=== PATIENT | female | born 2000 | race Caucasian/White ===

== ENCOUNTER 2022-05-21 04:51 | Emergency (ER) | payer OTHER, SELFPAY ==
--- NOTE | ~2022-05-21 | XR_ITS ---
EXAMINATION: XR CHEST CLINICAL INFORMATION: Shortness of breath COMPARISON: None TECHNIQUE: Frontal view of the chest was obtained. FINDINGS: Normal symmetric lung volumes. No parenchymal consolidation. No pleural effusion. No pneumothorax. Cardiomediastinal silhouette and pulmonary vascularity are within normal limits. No acute osseous abnormalities. XR/XR chest 1V IMPRESSION: No acute pulmonary findings
[2022-05-21 05:04] VITALS: BP 109/69; PULSE 120; RESP 18; TEMP 37.9; O2SAT 97; BMI 20.9
--- NOTE | 2022-05-21 05:11 | ECG_ITS ---
Test Reason : tachycardia Blood Pressure : / mmHG Vent. Rate : 113 BPM Atrial Rate : 113 BPM P-R Int : 158 ms QRS Dur : 072 ms QT Int : 310 ms P-R-T Axes : 071 075 016 degrees QTc Int : 425 ms Sinus tachycardia Otherwise normal ECG No previous ECGs available Referred By: Og Lilly Electronically Signed By:RADHA LAMAR
[2022-05-21 05:36] LABS: Basophils Percent Auto 0.4 % (0-2); Eosinophils Absolute Auto 0.2 X10*3/uL (0.0-0.4); Eosinophils Percent Auto 2.2 % (0-4); Hematocrit 42.3 % (37.0-47.0); Hemoglobin 14.5 g/dl (12.0-16.0); Imm Gran Abs Auto 0.02 X10*3/uL (0.00-0.03); Imm Gran Pct Auto 0.2 % (0.0-0.4); Lymphocytes Absolute Auto 0.5 X10*3/uL (1.2-4.9); Lymphocytes Percent Auto 5.9 % (20-40); MANUAL DIFF FLAG NO; Mean Corpuscular HGB Conc 34.3 g/dl (31.0-35.0); Mean Corpuscular Hemoglobin 29.7 pg (27.0-33.0); Mean Corpuscular Volume 86.7 fL (80.0-98.0); Mean Platelet Volume 10.3 fL (9.4-12.3); Monocytes Absolute Auto 0.6 X10*3/uL (0.1-1.2); Monocytes Percent Auto 6.7 % (2-11); Neutrophils Absolute Auto 7.1 x10*3/uL (2.0-8.3); Neutrophils Percent Auto 84.6 % (45-73); Platelet Count 262 X10*3/uL (160-400); Red Blood Count 4.88 X10*6/uL (4.20-5.50); White Blood Count 8.5 X10*3/uL (4.8-10.8)
[2022-05-21] MEDS: 0.9 % Sodium Chloride 1,000 ML 999 ML IV (05:38)
[2022-05-21] MEDS: Albuterol Sulfate (0.083%) 2.5 MG/3 ML VIAL.NEB INHALE (05:46)
[2022-05-21] MEDS: Albuterol/Iprat 2.5/0.5MG 3 ML AMPUL.NEB INHALE (05:46)
[2022-05-21] MEDS: predniSONE 20 MG TABLET 40 MG PO (05:47)
[2022-05-21 05:52] LABS: Anion Gap 19 (12-20); Blood Urea Nitrogen 9 mg/dL (9-16); Calcium 9.6 mg/dL (8.4-10.2); Carbon Dioxide 22 mmol/L (22-29); Chloride 102 mmol/L (96-108); Creatinine Clr Calc Pharmacy 97.7; Estimated Glomerular Filt Rate > 60; Glucose Random 108 mg/dL (60-115); Lipase 23 U/L (8-78); Potassium 3.6 mmol/L (3.3-5.1); Sodium 139 mmol/L (135-145)
[2022-05-21 06:04] VITALS: BP 117/65; PULSE 124; RESP 13; TEMP 37.8; O2SAT 100
--- NOTE | 2022-05-21 06:10 | PC.NURSE ---
Patient reports feeling heart palpitations. RR 15, O2 Sat 100%, BP 117/65, P 120-129. Patient denies chest pain, dyspnea improving. Patient receiving Duoneb treatment at this moment. Dr. Lilly notified.
[2022-05-21 06:17] LABS: Influenza A PCR NEGATIVE (Negative); Influenza B PCR NEGATIVE (Negative); Resp Syncy Virus RNA Qual PCR NEGATIVE (Negative); SARS COV2 PCR INHOUSE NEGATIVE (Negative)
--- NOTE | 2022-05-21 06:25 | ED.GENADULT ---
HPI - General Adult General Chief complaint: General Medical Stated complaint: SOB/Fast heart rate Time Seen by Provider: 05/21/22 05:10 Source: patient Mode of arrival: ambulatory Limitations: no limitations History of Present Illness HPI narrative: 21-year-old female came in for evaluation of shortness of breath and feeling generalized weakness. 21-year-old female with history of asthma since yesterday been having shortness of breath and coughing with clear sputum, patient also been having rapid heart rate and shortness of breath. Patient declined any recent prolonged immobilization, no recent travel, no lower extremity swelling or tenderness, no history of DVT or PE. No sick contacts, no recent travel. Related Data Previous Rx's Medication Instructions Recorded albuterol sulfate 90 mcg/actuation 1 inh inhalation QID PRN shortness 05/21/22 aerosol inhaler of breath or wheezing #8.5 grams azithromycin 250 mg tablet See Rx Instructions PO .COMPLEX #6 05/21/22 (Zithromax Z-Ravin) tabs prednisone 20 mg tablet 20 mg PO BID #8 tabs 05/21/22 Allergies Allergy/AdvReac Type Severity Reaction Status Date / Time No Known Allergies Allergy Verified 05/21/22 05:03 Review of Systems Review of Systems: All other systems are reviewed and are negative Constitutional: Reports as per HPI and Reports no additional constitutional complaints Eyes: Reports as per HPI and Reports no additional eye complaints Reports system reviewed and no additional complaints, except as documented Cardiovascular: Reports as per HPI and Reports no additional cardiovascular complaints Respiratory: Reports as per HPI and Reports no additional respiratory complaints Gastrointestinal: Reports as per HPI and Reports no additional gastrointestinal complaints Genitourinary: Reports no additional female genitourinary complaints Musculoskeletal: Reports no additional musculoskeletal complaints Skin/Breast: Reports system reviewed and no additional complaints, except as docu Psychiatric: Reports no additional psychiatric complaints Endocrine: Reports no additional endocrine complaints Hematologic/Lymphatic: Reports no additional hematologic/lymphatic complaints Allergic/Immunologic: Reports no additional allergic/immunologic complaints Reports system reviewed and no additional complaints, except as documented and Reports Abnormal speech present [facility] Social History Social History Advance Directives: No Physical Exam ED Vital Signs: Vital Signs - 24 hr 05/21/22 05:04 05/21/22 06:04 Temperature 100.3 F 100.1 F Pulse Rate 120 H 124 H Respiratory Rate 18 13 Blood Pressure 109/69 117/65 Pulse Oximetry 97 100 Oxygen Delivery Method Room Air Room Air BMI result Body Mass Index 20.9 Vital signs have been reviewed as appeared to be correct. Blood pressure normal. Tachycardia. Respiration rate normal. Low-grade fever. Oxygen saturation normal. Appearance: Alert. Oriented X3. No acute distress. Head: Normal external exam. Normocephalic. Atraumatic. No Bucio signs noted. No raccoon eyes noted Eyes: PERRLA. EOMI. Conjunctiva and sclera normal. Eyelids normal. ENT: TM's Normal. Pharynx normal. Uvula midline. Moist mucous membranes. No trismus noted. No drooling noted. No muffled voice noted. Neck: Normal inspection. Neck supple. FROM. No adenopathy. Thyroid Normal. No meningeal signs. No neck mass noted. CVS: Sinus tachycardia. Heart sound normal. No murmurs noted. Pulses normal throughout. Respiratory: No respiratory distress. Painless inspiration. Breath sounds normal. Diffuse expiratory wheezing with prolonged expiration. Chest nontender. No accessory muscle usage noted or decreased air movement noted. Abdomen: Soft and nontender. Bowel sounds normal in all 4 quadrants. No distention noted. No organomegaly noted. No visible injury noted. Back: No CVA tenderness. Full range of motion noted. Skin: Skin warm and dry. Normal skin color. Normal skin turgor. No rashes/lesions/lacerations noted. Extremities: No lower extremity edema. Extremities exhibit normal range of motion. Extremities nontender. Neuro: Oriented X 3. Cranial nerve exam: II-XII are grossly intact No motor deficit. No sensory deficit. Reflexes normal. Course Course Course Narrative: 21-year-old female came in for evaluation of shortness of breath physical exam is consistent with acute bronchitis, no risk for PE or DVT awaiting for D-dimer. Will discharge home on prednisone/bronchodilator/Z-Ravin Medical Decision Making Lab Data Lab results reviewed: Yes I reviewed the patient's lab results. Result diagrams: 05/21/22 05:30 05/21/22 05:30 Labs: Lab Results 05/21/22 05/21/22 05/21/22 Range/Units 05:30 05:30 05:30 WBC 8.5 (4.8-10.8) X10*3/uL RBC 4.88 (4.20-5.50) X10*6/uL Hgb 14.5 (12.0-16.0) g/dl Hct 42.3 (37.0-47.0) % MCV 86.7 (80.0-98.0) fL MCH 29.7 (27.0-33.0) pg MCHC 34.3 (31.0-35.0) g/dl RDW 12.0 (11.0-16.0) % Plt Count 262 (160-400) X10*3/uL MPV 10.3 (9.4-12.3) fL Immature Gran % (Auto) 0.2 (0.0-0.4) % Neut % (Auto) 84.6 H (45-73) % Lymph % (Auto) 5.9 L (20-40) % [place] % (Auto) 6.7 (2-11) % Eos % (Auto) 2.2 (0-4) % Baso % (Auto) 0.4 (0-2) % Lymph # (Auto) 0.5 L (1.2-4.9) X10*3/uL [place] # (Auto) 0.6 (0.1-1.2) X10*3/uL Eos # (Auto) 0.2 (0.0-0.4) X10*3/uL Baso # (Auto) 0.0 (0.0-0.2) X10*3/uL Abs Immat Gran (auto) 0.02 (0.00-0.03) X10*3/uL Absolute Neuts (auto) 7.1 (2.0-8.3) x10*3/uL Absolute Nucleated RBC 0.000 (0.0-0.012) X10*3/uL Nucleated RBC % (auto) 0.0 (0.0-0.2) /100WBC Sodium 139 (135-145) mmol/L Potassium 3.6 (3.3-5.1) mmol/L Chloride 102 (96-108) mmol/L Carbon Dioxide 22 (22-29) mmol/L Anion Gap 19 (12-20) BUN 9 (9-16) mg/dL Creatinine 0.76 (0.5-1.4) mg/dL Estim Creat Clear Calc 97.7 Estimated GFR > 60 Random Glucose 108 (60-115) mg/dL Calcium 9.6 (8.4-10.2) mg/dL Lipase 23 (8-78) U/L Influenza Type A (PCR) NEGATIVE (Negative) Influenza Type B (PCR) NEGATIVE (Negative) RSV RNA Qual (PCR) NEGATIVE (Negative) SARS-CoV-2 RNA (RT-PCR) NEGATIVE (Negative) Imaging Data Chest x-ray: Attestation: I personally reviewed and interpreted this imaging study as follows: Radiologist's impression: No acute pathology. ECG Data Attestation: I personally reviewed and interpreted this ECG as follows: Interpretation: Normal sinus tachycardia at 113 beats per minutes, normal intervals, no ST-T changes. Discharge Plan Discharge Clinical Impression: Acute bronchitis Patient Disposition: Home, Self-Care Instructions: Acute Bronchitis (ED) Prescriptions: New prednisone 20 mg tablet 20 mg PO BID Qty: 8 0RF azithromycin [Zithromax Z-Ravin] 250 mg tablet See Rx Instructions .ROUTE .COMPLEX Qty: 6 0RF Rx Instructions: For 250 mg dose pack: take 500 mg today (day 1), then 250 mg for 4 days (days 2-5) albuterol sulfate 90 mcg/actuation HFA aerosol inhaler 1 inh inhalation QID PRN (Reason: shortness of breath or wheezing) Qty: 8.5 0RF Referrals: Physician,Unknown J [Primary Care Provider] -
[2022-05-21 07:18] VITALS: BP 92/54; PULSE 112; RESP 18; TEMP 38.2; O2SAT 98
[2022-05-21 07:39] LABS: D Dimer High Sensitivity < 150 NG/ML
[2022-05-21] MEDS: Acetaminophen 325 MG TABLET 650 MG PO (07:44)
[2022-05-21 08:05] LABS: Appearance Urine Clear; Color Urine Yellow; Glucose Urine UA Negative (Negative); Leukocyte Esterase Urine Negative (Negative); Nitrite Urine Negative (Negative); PH 6.5 (5.0-9.0); Urine Blood Negative (Negative); Urine Ketones Trace mg/dL (Negative); Urine Protein Negative (Neg-Trace)
== END 2022-05-21 08:38 | disposition home or self-care (01) ==
PROVIDERS: Emergency Provider Emergency Medicine
DX: J20.9 Acute bronchitis, unspecified (principal); R53.1 Weakness; Z20.822 Contact with and (suspected) exposure to COVID-19
CPT/HCPCS: 0241U; 36415; 71045; 80048; 81003; 83690; 85025; 85379; 93005; 96360; 96361; 99284; 99285

== ENCOUNTER 2022-12-07 16:57 | Emergency (ER) | payer OTHER, SELFPAY ==
[2022-12-07 17:21] VITALS: BP 133/73; PULSE 100; RESP 18; TEMP 37.2; O2SAT 99; BMI 18.4
--- NOTE | 2022-12-07 17:22 | ED.GENADULT ---
HPI - General Adult General Chief complaint: Nausea/Vomiting/Diarrhea <Warren Burks - Last Filed: 12/07/22 17:23> Stated complaint: N/V/D <Warren Burks - Last Filed: 12/07/22 17:23> Time Seen by Provider: 12/07/22 21:13 <Warren Burks - Last Filed: 12/07/22 17:23> Source: patient <Kota Cottrell MD - Last Filed: 12/08/22 01:52> Mode of arrival: ambulatory <Kota Cottrell MD - Last Filed: 12/08/22 01:52> Limitations: no limitations <Kota Cottrell MD - Last Filed: 12/08/22 01:52> History of Present Illness HPI narrative: Patient is healthy comes here diarrhea and vomiting started earlier today vomited about 4-6 times and diarrhea by 3 times no abdominal cramping no fever no chills no recent travel or bad food intake <Kota Cottrell MD - Last Filed: 12/08/22 01:52> Related Data Home medications: Previous Rx's Medication Instructions Recorded albuterol sulfate 90 mcg/actuation 1 inh inhalation QID PRN shortness 05/21/22 aerosol inhaler of breath or wheezing #8.5 grams azithromycin 250 mg tablet See Rx Instructions PO .COMPLEX #6 05/21/22 (Zithromax Z-Ravin) tabs prednisone 20 mg tablet 20 mg PO BID #8 tabs 05/21/22 ondansetron 4 mg disintegrating 4 mg PO Q6-8H PRN nausea and 12/07/22 tablet vomiting #7 tabs <Warren Burks - Last Filed: 12/07/22 17:23> Allergies/adverse reactions: Allergies Allergy/AdvReac Type Severity Reaction Status Date / Time No Known Allergies Allergy Verified 05/21/22 05:03 <Warren Burks - Last Filed: 12/07/22 17:23> Review of Systems Review of Systems: Yes all other systems are reviewed and are negative <Kota Cottrell MD - Last Filed: 12/08/22 01:52> PMFSH Social History Social History: Social History Advance Directives: No Advance Directives Information Provided: Yes <Warren Burks - Last Filed: 12/07/22 17:23> Physical Exam ED Vital Signs: Vital Signs - 24 hr 12/07/22 17:21 12/07/22 21:02 Temperature 99.0 F 98.4 F Pulse Rate 100 92 Respiratory Rate 18 15 Blood Pressure 133/73 106/64 Pulse Oximetry 99 100 Oxygen Delivery Method Room Air Room Air BMI result Body Mass Index 18.4 <Warren Burks - Last Filed: 12/07/22 17:23> Vital Signs - 24 hr 12/07/22 17:21 12/07/22 21:02 Temperature 99.0 F 98.4 F Pulse Rate 100 92 Respiratory Rate 18 15 Blood Pressure 133/73 106/64 Pulse Oximetry 99 100 Oxygen Delivery Method Room Air Room Air BMI result Body Mass Index 18.4 <Kota Cottrell MD - Last Filed: 12/08/22 01:52> Appearance: Alert. Oriented X3. No acute distress. ENT: Pharynx normal. Oral Mucosa moist Neck: Normal inspection. Neck supple. CVS: Normal heart rate and rhythm. Pulses normal. Respiratory: No respiratory distress. Equal air entry bilateral, no wheezing/rales/rhonchi Abdomen: Soft and nontender. Bowel sounds are present, no mass palpable, no CVA tenderness Skin: Skin warm and dry. Normal skin color. Normal skin turgor. Extremities: No lower extremity edema. No calf tenderness Neuro: Oriented X 3. No motor deficit. <Kota Cottrell MD - Last Filed: 12/08/22 01:52> Course Course Course Narrative: RME- 22 year old female presents for evaluation of nausea and vomiting that started today <Warren Burks - Last Filed: 12/07/22 17:23> Medications Administered Discontinued Medications Generic Name Dose Route Start Last Admin Trade Name Freq PRN Reason Stop Dose Admin Loperamide HCl 2 mg 12/07/22 21:27 12/07/22 21:56 Loperamide Hcl 2 Mg Capsule PO 12/07/22 21:28 2 mg ONCE ONE Administration Ondansetron HCl 4 mg 12/07/22 21:27 12/07/22 21:34 Ondansetron Odt 4 Mg Tab.Rapdis TRANSLINGU 12/07/22 21:28 4 mg ONCE ONE Administration <Warren Burks - Last Filed: 12/07/22 17:23> Medications Administered Discontinued Medications Generic Name Dose Route Start Last Admin Trade Name Josiane PRN Reason Stop Dose Admin Loperamide HCl 2 mg 12/07/22 21:27 12/07/22 21:56 Loperamide Hcl 2 Mg Capsule PO 12/07/22 21:28 2 mg ONCE ONE Administration Ondansetron HCl 4 mg 12/07/22 21:27 12/07/22 21:34 Ondansetron Odt 4 Mg Tab.Rapdis TRANSLINGU 12/07/22 21:28 4 mg ONCE ONE Administration <Kota Cottrell MD - Last Filed: 12/08/22 01:52> Medical Decision Making Lab Data Result Diagrams: 12/07/22 19:20 12/07/22 19:20 <Warren Burks - Last Filed: 12/07/22 17:23> Labs: Lab Results 12/07/22 12/07/22 12/07/22 Range/Units 19:20 19:20 19:20 WBC 10.0 (4.8-10.8) X10*3/uL RBC 5.17 (4.20-5.50) X10*6/uL Hgb 15.6 (12.0-16.0) g/dl Hct 45.6 (37.0-47.0) % MCV 88.2 (80.0-98.0) fL MCH 30.2 (27.0-33.0) pg MCHC 34.2 (31.0-35.0) g/dl RDW 12.1 (11.0-16.0) % Plt Count 251 (160-400) X10*3/uL MPV 10.4 (9.4-12.3) fL Immature Gran % (Auto) 0.3 (0.0-0.4) % Neut % (Auto) 88.0 H (45-73) % Lymph % (Auto) 4.2 L (20-40) % [place] % (Auto) 4.9 (2-11) % Eos % (Auto) 2.4 (0-4) % Baso % (Auto) 0.2 (0-2) % Lymph # (Auto) 0.4 L (1.2-4.9) X10*3/uL [place] # (Auto) 0.5 (0.1-1.2) X10*3/uL Eos # (Auto) 0.2 (0.0-0.4) X10*3/uL Baso # (Auto) 0.0 (0.0-0.2) X10*3/uL Abs Immat Gran (auto) 0.03 (0.00-0.03) X10*3/uL Absolute Neuts (auto) 8.8 H (2.0-8.3) x10*3/uL Absolute Nucleated RBC 0.000 (0.0-0.012) X10*3/uL Nucleated RBC % (auto) 0.0 (0.0-0.2) /100WBC Sodium 138 (135-145) mmol/L Potassium 4.2 (3.3-5.1) mmol/L Chloride 105 (96-108) mmol/L Carbon Dioxide 22 (22-29) mmol/L Anion Gap 15 (12-20) BUN 16 (9-16) mg/dL Creatinine 0.77 (0.5-1.4) mg/dL Estim Creat Clear Calc 86.0 Estimated GFR > 60 Random Glucose 80 (60-115) mg/dL Calcium 9.1 (8.4-10.2) mg/dL Total Bilirubin 2.0 H (0.0-1.0) mg/dL AST 18 (5-31) U/L ALT 11 (0-31) U/L Alkaline Phosphatase 53 (39-117) U/L Total Protein 7.3 (6.5-8.0) g/dL Albumin 4.8 (3.5-5.0) g/dL Lipase 17 (8-78) U/L Urine Color Urine Appearance Urine pH (5.0-9.0) Ur Specific [place] (1.005-1.025) Urine Protein (Neg-Trace) mg/dL Urine Glucose (UA) (Negative) mg/dL Urine Ketones (Negative) mg/dL Urine Blood (Negative) Urine Nitrite (Negative) Ur Leukocyte Esterase (Negative) Urine RBC (0-2) /HPF Urine WBC (0-5) /HPF Ur Squamous Epith Cells (0-2) /HPF Urine Bacteria (None Seen) Hyaline Casts (0-2) /LPF Urine Test (NEGATIVE) Urine Opiates Screen (Not Detect) Urine Fentanyl Screen (Not Detect) Ur Barbiturates Screen (Not Detect) Ur Phencyclidine Scrn (Not Detect) Ur Amphetamines Screen (Not Detect) U Benzodiazepines Scrn (Not Detect) Urine Cocaine Screen (Not Detect) U Marijuana (THC) Screen (Not Detect) Influenza Type A (PCR) NEGATIVE (Negative) Influenza Type B (PCR) NEGATIVE (Negative) RSV RNA Qual (PCR) NEGATIVE (Negative) SARS-CoV-2 RNA (RT-PCR) NEGATIVE (Negative) 12/07/22 12/07/22 12/07/22 Range/Units 22:34 22:34 22:34 WBC (4.8-10.8) X10*3/uL RBC (4.20-5.50) X10*6/uL Hgb (12.0-16.0) g/dl Hct (37.0-47.0) % MCV (80.0-98.0) fL MCH (27.0-33.0) pg MCHC (31.0-35.0) g/dl RDW (11.0-16.0) % Plt Count (160-400) X10*3/uL MPV (9.4-12.3) fL Immature Gran % (Auto) (0.0-0.4) % Neut % (Auto) (45-73) % Lymph % (Auto) (20-40) % [place] % (Auto) (2-11) % Eos % (Auto) (0-4) % Baso % (Auto) (0-2) % Lymph # (Auto) (1.2-4.9) X10*3/uL [place] # (Auto) (0.1-1.2) X10*3/uL Eos # (Auto) (0.0-0.4) X10*3/uL Baso # (Auto) (0.0-0.2) X10*3/uL Abs Immat Gran (auto) (0.00-0.03) X10*3/uL Absolute Neuts (auto) (2.0-8.3) x10*3/uL Absolute Nucleated RBC (0.0-0.012) X10*3/uL Nucleated RBC % (auto) (0.0-0.2) /100WBC Sodium (135-145) mmol/L Potassium (3.3-5.1) mmol/L Chloride (96-108) mmol/L Carbon Dioxide (22-29) mmol/L Anion Gap (12-20) BUN (9-16) mg/dL Creatinine (0.5-1.4) mg/dL Estim Creat Clear Calc Estimated GFR Random Glucose (60-115) mg/dL Calcium (8.4-10.2) mg/dL Total Bilirubin (0.0-1.0) mg/dL AST (5-31) U/L ALT (0-31) U/L Alkaline Phosphatase (39-117) U/L Total Protein (6.5-8.0) g/dL Albumin (3.5-5.0) g/dL Lipase (8-78) U/L Urine Color Yellow Urine Appearance Clear Urine pH 5.5 (5.0-9.0) Ur Specific [place] >= 1.030 H (1.005-1.025) Urine Protein Trace (Neg-Trace) mg/dL Urine Glucose (UA) Negative (Negative) mg/dL Urine Ketones >=160 (Negative) mg/dL Urine Blood Negative (Negative) Urine Nitrite Negative (Negative) Ur Leukocyte Esterase Negative (Negative) Urine RBC 0-2 (0-2) /HPF Urine WBC 0-5 (0-5) /HPF Ur Squamous Epith Cells 0-2 (0-2) /HPF Urine Bacteria None Seen (None Seen) Hyaline Casts 0-2 (0-2) /LPF Urine Test NEGATIVE (NEGATIVE) Urine Opiates Screen Not Detected (Not Detect) Urine Fentanyl Screen Not Detected (Not Detect) Ur Barbiturates Screen Not Detected (Not Detect) Ur Phencyclidine Scrn Not Detected (Not Detect) Ur Amphetamines Screen Not Detected (Not Detect) U Benzodiazepines Scrn Not Detected (Not Detect) Urine Cocaine Screen Not Detected (Not Detect) U Marijuana (THC) Screen POSITIVE H (Not Detect) Influenza Type A (PCR) (Negative) Influenza Type B (PCR) (Negative) RSV RNA Qual (PCR) (Negative) SARS-CoV-2 RNA (RT-PCR) (Negative) <Warren Rodriguez Filed: 12/07/22 17:23> Lab Results 12/07/22 12/07/22 12/07/22 Range/Units 19:20 19:20 19:20 WBC 10.0 (4.8-10.8) X10*3/uL RBC 5.17 (4.20-5.50) X10*6/uL Hgb 15.6 (12.0-16.0) g/dl Hct 45.6 (37.0-47.0) % MCV 88.2 (80.0-98.0) fL MCH 30.2 (27.0-33.0) pg MCHC 34.2 (31.0-35.0) g/dl RDW 12.1 (11.0-16.0) % Plt Count 251 (160-400) X10*3/uL MPV 10.4 (9.4-12.3) fL Immature Gran % (Auto) 0.3 (0.0-0.4) % Neut % (Auto) 88.0 H (45-73) % Lymph % (Auto) 4.2 L (20-40) % [place] % (Auto) 4.9 (2-11) % Eos % (Auto) 2.4 (0-4) % Baso % (Auto) 0.2 (0-2) % Lymph # (Auto) 0.4 L (1.2-4.9) X10*3/uL [place] # (Auto) 0.5 (0.1-1.2) X10*3/uL Eos # (Auto) 0.2 (0.0-0.4) X10*3/uL Baso # (Auto) 0.0 (0.0-0.2) X10*3/uL Abs Immat Gran (auto) 0.03 (0.00-0.03) X10*3/uL Absolute Neuts (auto) 8.8 H (2.0-8.3) x10*3/uL Absolute Nucleated RBC 0.000 (0.0-0.012) X10*3/uL Nucleated RBC % (auto) 0.0 (0.0-0.2) /100WBC Sodium 138 (135-145) mmol/L Potassium 4.2 (3.3-5.1) mmol/L Chloride 105 (96-108) mmol/L Carbon Dioxide 22 (22-29) mmol/L Anion Gap 15 (12-20) BUN 16 (9-16) mg/dL Creatinine 0.77 (0.5-1.4) mg/dL Estim Creat Clear Calc 86.0 Estimated GFR > 60 Random Glucose 80 (60-115) mg/dL Calcium 9.1 (8.4-10.2) mg/dL Total Bilirubin 2.0 H (0.0-1.0) mg/dL AST 18 (5-31) U/L ALT 11 (0-31) U/L Alkaline Phosphatase 53 (39-117) U/L Total Protein 7.3 (6.5-8.0) g/dL Albumin 4.8 (3.5-5.0) g/dL Lipase 17 (8-78) U/L Urine Color Urine Appearance Urine pH (5.0-9.0) Ur Specific [place] (1.005-1.025) Urine Protein (Neg-Trace) mg/dL Urine Glucose (UA) (Negative) mg/dL Urine Ketones (Negative) mg/dL Urine Blood (Negative) Urine Nitrite (Negative) Ur Leukocyte Esterase (Negative) Urine RBC (0-2) /HPF Urine WBC (0-5) /HPF Ur Squamous Epith Cells (0-2) /HPF Urine Bacteria (None Seen) Hyaline Casts (0-2) /LPF Urine Test (NEGATIVE) Urine Opiates Screen (Not Detect) Urine Fentanyl Screen (Not Detect) Ur Barbiturates Screen (Not Detect) Ur Phencyclidine Scrn (Not Detect) Ur Amphetamines Screen (Not Detect) U Benzodiazepines Scrn (Not Detect) Urine Cocaine Screen (Not Detect) U Marijuana (THC) Screen (Not Detect) Influenza Type A (PCR) NEGATIVE (Negative) Influenza Type B (PCR) NEGATIVE (Negative) RSV RNA Qual (PCR) NEGATIVE (Negative) SARS-CoV-2 RNA (RT-PCR) NEGATIVE (Negative) 12/07/22 12/07/22 12/07/22 Range/Units 22:34 22:34 22:34 WBC (4.8-10.8) X10*3/uL RBC (4.20-5.50) X10*6/uL Hgb (12.0-16.0) g/dl Hct (37.0-47.0) % MCV (80.0-98.0) fL MCH (27.0-33.0) pg MCHC (31.0-35.0) g/dl RDW (11.0-16.0) % Plt Count (160-400) X10*3/uL MPV (9.4-12.3) fL Immature Gran % (Auto) (0.0-0.4) % Neut % (Auto) (45-73) % Lymph % (Auto) (20-40) % [place] % (Auto) (2-11) % Eos % (Auto) (0-4) % Baso % (Auto) (0-2) % Lymph # (Auto) (1.2-4.9) X10*3/uL [place] # (Auto) (0.1-1.2) X10*3/uL Eos # (Auto) (0.0-0.4) X10*3/uL Baso # (Auto) (0.0-0.2) X10*3/uL Abs Immat Gran (auto) (0.00-0.03) X10*3/uL Absolute Neuts (auto) (2.0-8.3) x10*3/uL Absolute Nucleated RBC (0.0-0.012) X10*3/uL Nucleated RBC % (auto) (0.0-0.2) /100WBC Sodium (135-145) mmol/L Potassium (3.3-5.1) mmol/L Chloride (96-108) mmol/L Carbon Dioxide (22-29) mmol/L Anion Gap (12-20) BUN (9-16) mg/dL Creatinine (0.5-1.4) mg/dL Estim Creat Clear Calc Estimated GFR Random Glucose (60-115) mg/dL Calcium (8.4-10.2) mg/dL Total Bilirubin (0.0-1.0) mg/dL AST (5-31) U/L ALT (0-31) U/L Alkaline Phosphatase (39-117) U/L Total Protein (6.5-8.0) g/dL Albumin (3.5-5.0) g/dL Lipase (8-78) U/L Urine Color Yellow Urine Appearance Clear Urine pH 5.5 (5.0-9.0) Ur Specific [place] >= 1.030 H (1.005-1.025) Urine Protein Trace (Neg-Trace) mg/dL Urine Glucose (UA) Negative (Negative) mg/dL Urine Ketones >=160 (Negative) mg/dL Urine Blood Negative (Negative) Urine Nitrite Negative (Negative) Ur Leukocyte Esterase Negative (Negative) Urine RBC 0-2 (0-2) /HPF Urine WBC 0-5 (0-5) /HPF Ur Squamous Epith Cells 0-2 (0-2) /HPF Urine Bacteria None Seen (None Seen) Hyaline Casts 0-2 (0-2) /LPF Urine Test NEGATIVE (NEGATIVE) Urine Opiates Screen Not Detected (Not Detect) Urine Fentanyl Screen Not Detected (Not Detect) Ur Barbiturates Screen Not Detected (Not Detect) Ur Phencyclidine Scrn Not Detected (Not Detect) Ur Amphetamines Screen Not Detected (Not Detect) U Benzodiazepines Scrn Not Detected (Not Detect) Urine Cocaine Screen Not Detected (Not Detect) U Marijuana (THC) Screen POSITIVE H (Not Detect) Influenza Type A (PCR) (Negative) Influenza Type B (PCR) (Negative) RSV RNA Qual (PCR) (Negative) SARS-CoV-2 RNA (RT-PCR) (Negative) <Kota Cottrell MD - Last Filed: 12/08/22 01:52> Discharge Plan Discharge Clinical Impression: Gastroenteritis <Warren Burks - Last Filed: 12/07/22 17:23> Patient Disposition: Home, Self-Care <Warren Burks - Last Filed: 12/07/22 17:23> Instructions: Gastroenteritis (ED) <Warren Burks - Last Filed: 12/07/22 17:23> Additional Instructions: Drink Plenty of fluids Zofran for nausea Follow with PCP if not better <Warren Burks - Last Filed: 12/07/22 17:23> Prescriptions: New ondansetron 4 mg tablet,disintegrating 4 mg PO Q6-8H PRN (Reason: nausea and vomiting) Qty: 7 0RF No Action prednisone 20 mg tablet 20 mg PO BID Qty: 8 0RF azithromycin [Zithromax Z-Ravin] 250 mg tablet See Rx Instructions .ROUTE .COMPLEX Qty: 6 0RF Rx Instructions: For 250 mg dose pack: take 500 mg today (day 1), then 250 mg for 4 days (days 2-5) albuterol sulfate 90 mcg/actuation HFA aerosol inhaler 1 inh inhalation QID PRN (Reason: shortness of breath or wheezing) Qty: 8.5 0RF <Warren Burks - Last Filed: 12/07/22 17:23> Interventions: ED Discharge Assessment Last Done: 12/07/22 23:30 <Warren Burks - Last Filed: 12/07/22 17:23> Discharge Date/Time: 12/07/22 23:31 <Warren Burks - Last Filed: 12/07/22 17:23>
--- NOTE | 2022-12-07 19:23 | MHC.EDTECH ---
pt blood drawn ,rsv /covid swab collected and sent to lab .
[2022-12-07 19:24] LABS: MANUAL DIFF FLAG NO
[2022-12-07 19:31] LABS: Basophils Percent Auto 0.2 % (0-2); Eosinophils Absolute Auto 0.2 X10*3/uL (0.0-0.4); Eosinophils Percent Auto 2.4 % (0-4); Hematocrit 45.6 % (37.0-47.0); Hemoglobin 15.6 g/dl (12.0-16.0); Imm Gran Abs Auto 0.03 X10*3/uL (0.00-0.03); Imm Gran Pct Auto 0.3 % (0.0-0.4); Lymphocytes Absolute Auto 0.4 X10*3/uL (1.2-4.9); Lymphocytes Percent Auto 4.2 % (20-40); Mean Corpuscular HGB Conc 34.2 g/dl (31.0-35.0); Mean Corpuscular Hemoglobin 30.2 pg (27.0-33.0); Mean Corpuscular Volume 88.2 fL (80.0-98.0); Mean Platelet Volume 10.4 fL (9.4-12.3); Monocytes Absolute Auto 0.5 X10*3/uL (0.1-1.2); Monocytes Percent Auto 4.9 % (2-11); Neutrophils Absolute Auto 8.8 x10*3/uL (2.0-8.3); Platelet Count 251 X10*3/uL (160-400); Red Blood Count 5.17 X10*6/uL (4.20-5.50); Red Cell Distribution Width 12.1 % (11.0-16.0)
[2022-12-07 19:52] LABS: Alanine Aminotransferase 11 U/L (0-31); Albumin Level 4.8 g/dL (3.5-5.0); Alkaline Phosphatase 53 U/L (39-117); Anion Gap 15 (12-20); Aspartate Amino Transferase 18 U/L (5-31); Blood Urea Nitrogen 16 mg/dL (9-16); Calcium 9.1 mg/dL (8.4-10.2); Carbon Dioxide 22 mmol/L (22-29); Chloride 105 mmol/L (96-108); Estimated Glomerular Filt Rate > 60; Glucose Random 80 mg/dL (60-115); Lipase 17 U/L (8-78); Potassium 4.2 mmol/L (3.3-5.1); Sodium 138 mmol/L (135-145); Total Protein 7.3 g/dL (6.5-8.0)
[2022-12-07 20:26] LABS: Influenza A PCR NEGATIVE (Negative); Influenza B PCR NEGATIVE (Negative); Resp Syncy Virus RNA Qual PCR NEGATIVE (Negative); SARS COV2 PCR INHOUSE NEGATIVE (Negative)
[2022-12-07 21:02] VITALS: BP 106/64; PULSE 92; RESP 15; TEMP 36.9; O2SAT 100
[2022-12-07] MEDS: Ondansetron ODT 4 MG TAB.RAPDIS TRANSLINGU (21:34)
[2022-12-07] MEDS: Loperamide HCl 2 MG CAPSULE PO (21:56)
[2022-12-07 22:46] LABS: Appearance Urine Clear; Color Urine Yellow; Glucose Urine UA Negative (Negative); Leukocyte Esterase Urine Negative (Negative); Nitrite Urine Negative (Negative); PH 5.5 (5.0-9.0); Specific Gravity - Urine >= 1.030 (1.005-1.025); Urine Blood Negative (Negative); Urine Ketones >=160 mg/dL (Negative); Urine Protein Trace mg/dL (Neg-Trace)
[2022-12-07 22:50] LABS: Bacteria Urine None Seen (None Seen); Hyaline Casts Urine 0-2 /LPF (0-2); RBC Urine 0-2 /HPF (0-2); Squamous Epithelial Cell Urine 0-2 /HPF (0-2); UPreg QC Valid YES; Urine Pregnancy NEGATIVE (NEGATIVE); WBC Urine 0-5 /HPF (0-5)
[2022-12-07 22:55] LABS: Amphetamine Screen Urine Not Detected (Not Detect); Barbiturates, Urine Not Detected (Not Detect); Benzodiazepines Screen Urine Not Detected (Not Detect); Cannabinoid Screen Urine POSITIVE (Not Detect); Cocaine Screen Urine Not Detected (Not Detect); Fentanyl, urine Not Detected (Not Detect); Opiate Screen Urine Not Detected (Not Detect); Phencyclidine Screen Urine Not Detected (Not Detect)
== END 2022-12-07 23:31 | disposition home or self-care (01) ==
PROVIDERS: Physician Assistant; Emergency Provider Internal Medicine
DX: K52.9 Noninfective gastroenteritis and colitis, unspecified (principal); R11.2 Nausea with vomiting, unspecified; Z20.822 Contact with and (suspected) exposure to COVID-19; Z20.828 Contact with and (suspected) exposure to other viral communicable diseases; Z79.899 Other long term (current) drug therapy
CPT/HCPCS: 0241U; 36415; 80053; 80307; 81001; 81025; 83690; 85025; 99283

== ENCOUNTER 2023-06-27 10:03 | Emergency (ER) | payer OTHER, SELFPAY ==
[2023-06-27 10:31] VITALS: BP 115/70; PULSE 76; RESP 18; TEMP 37.3; O2SAT 97; BMI 18.7
[2023-06-27 11:01] VITALS: PULSE 93; RESP 16; TEMP 37.3; O2SAT 99
[2023-06-27 11:04] VITALS: O2SAT 99
[2023-06-27 11:10] LABS: IDNOW Serial# 58CA691E; Strep A Nucleic Acid Negative (Negative)
--- NOTE | 2023-06-27 11:17 | ED_ITS ---
HPI - General Adult General Chief complaint: Upper Respiratory Symptoms Stated complaint: Fever Time Seen by Provider: 06/27/23 11:07 Source: patient Mode of arrival: ambulatory Limitations: no limitations History of Present Illness HPI narrative: Patient is a 22-year-old female presenting to the emergency department with complaint of sore throat and fever since yesterday. Reports fever of 103 at home. States he has not taken any Tylenol or ibuprofen for her symptoms. Reports boyfriend is sick with similar symptoms. Denies any cough or shortness of breath. Denies any abdominal pain, nausea, vomiting, diarrhea. Denies any ear pain. complaint: Sore throat Onset (ago): day(s) Radiation: non-radiation Severity: moderate Quality: burning Pain Consistency: constant Relieving factors: none Exacerbating factors: none Associated symptoms: fever/chills Treatments prior to arrival: none Related Data Previous Rx's Medication Instructions Recorded albuterol sulfate 90 mcg/actuation 1 inh inhalation QID PRN shortness 05/21/22 aerosol inhaler of breath or wheezing #8.5 grams azithromycin 250 mg tablet See Rx Instructions PO .COMPLEX #6 05/21/22 (Zithromax Z-Ravin) tabs prednisone 20 mg tablet 20 mg PO BID #8 tabs 05/21/22 ondansetron 4 mg disintegrating 4 mg PO Q6-8H PRN nausea and 12/07/22 tablet vomiting #7 tabs Allergies Allergy/AdvReac Type Severity Reaction Status Date / Time No Known Allergies Allergy Verified 05/21/22 05:03 Review of Systems Review of Systems: As per MDM. Yes all other systems are reviewed and are negative Constitutional: Constitutional: Reports as per HPI [facility] Social History Social History Advance Directives: No Physical Exam ED Vital Signs: Vital Signs - 24 hr 06/27/23 10:31 06/27/23 11:01 06/27/23 11:04 Temperature 99.2 F 99.1 F Pulse Rate 76 93 Respiratory Rate 18 16 Blood Pressure 115/70 Pulse Oximetry 97 99 99 Oxygen Delivery Method Room Air Room Air BMI result Body Mass Index 18.7 Vital signs have been reviewed and appear to be correct. Blood pressure normal. Heart rate normal. Respiratory rate normal. Temperature normal. Oxygen saturation normal. Const General: cooperative, healthy appearing and no acute distress Orientation/consciousness: oriented to person, oriented to place, oriented to time and patient oriented x3 Limitations: no limitations HENMT Head: Yes normocephalic and Yes atraumatic Ears: external ears normal, TM's normal bilaterally and EAC's normal General nose exam: Normal external nose present Face and sinus: Yes face symmetric Mouth: oropharynx normal and moist mucous membranes Throat: Yes posterior oropharynx normal, Yes tonsils normal, Yes uvula midline and No uvular edema Eyes Pupils: Equal, round and reactive pupils present Neck Neck: Yes normal visual inspection and Yes supple Lymphatic: no lymphadenopathy noted Resp Effort & Inspection: normal respiratory effort and able to speak in complete sentences Auscultation: clear to auscultation bilaterally Cardio Rate: regular rate Rhythm: regular rhythm Heart sounds: S1 normal heart sound present and S2 normal heart sound present GI Palpation (GI): Soft to palpation and nontender Auscultation: normoactive bowel sounds General: Yes no CVA tenderness Back/Spine/Pelvis Back: no CVA tenderness Skin General skin exam: elasticity normal and turgor normal Neuro General: oriented to person, oriented to place, oriented to time, patient oriented x3, moves all extremities, no focal motor deficits and CN's II-XI intact bilaterally Cranial nerves: Yes Equal, round and reactive pupils present Cognition (Neuro): normal cognition Extrem General: Yes full ROM, Yes no pedal edema and Yes no calf tenderness Psych Mental Status: mental status grossly normal Affect: normal affect Thought process: Normal thought process present Medical Decision Making Medical Decision Making MDM Narrative: Patient is a 22-year-old female presenting to the emergency department with complaint of sore throat and fever since yesterday. On exam patient is awake, A+Ox3, VS WNL, afebrile, normal neurological exam without focal deficits, physical exam findings as above. Given reported symptoms and physical exam findings, initial differential includes strep pharyngitis, viral illness, COVID, flu. Do not suspect peritonsillar abscess. Swabs for Covid, flu, and strep all negative, patient updated on results and all questions answered. With patient that symptoms are likely related to a viral infection will which will resolve on its own with rest and time. Advised alternating with Tylenol and ibuprofen as needed for pain or fever, warm saltwater gargles. Instructed patient to follow- up with primary care provider. Return precautions discussed at bedside. Patient verbalized understanding of and agreement with plan. Differential Diagnosis Differential Diagnoses: The differential diagnosis associated with the presenta tion includes As per [facility]. Lab Data [facility] Lab Attestation statement: I reviewed the patient's lab results. As per [facility]. Labs: Lab Results 06/27/23 06/27/23 Range/Units 10:43 11:01 COVID-19 (RIMA) Negative (Negative) COVID-19 Clin Com See Note Influenza Type A (ANNA) Negative (Negative) Influenza Type B (ANNA) Negative (Negative) Influenza A & B Note See Note S. pyogenes GrpA ANNA Negative (Negative) External Record Review External record reviewed: Inpatient record, Office record and Outpatient record Discharge Plan Discharge Clinical Impression: Viral infection Patient Disposition: Home, Self-Care Instructions: Viral Syndrome (ED), Pharyngitis (ED) Additional Instructions: You were evaluated in the emergency department today for a sore throat. Your COVID, flu, and strep swabs were all negative. Your symptoms are likely related to a viral infection which will resolve on its own with time and rest. Be sure to drink adequate fluids. You can use Tylenol and ibuprofen per package directions as needed for discomfort. You can also gargle with warm salt water several times daily. Follow-up with your primary care provider this week. Return to the emergency department if you develop difficulty swallowing, worsening pain, shortness of breath, are unable to swallow your saliva, or any other concerning symptoms. Prescriptions: No Action prednisone 20 mg tablet 20 mg PO BID Qty: 8 0RF azithromycin [Zithromax Z-Ravin] 250 mg tablet See Rx Instructions .ROUTE .COMPLEX Qty: 6 0RF Rx Instructions: For 250 mg dose pack: take 500 mg today (day 1), then 250 mg for 4 days (days 2-5) albuterol sulfate 90 mcg/actuation HFA aerosol inhaler 1 inh inhalation QID PRN (Reason: shortness of breath or wheezing) Qty: 8.5 0RF ondansetron 4 mg tablet,disintegrating 4 mg PO Q6-8H PRN (Reason: nausea and vomiting) Qty: 7 0RF
[2023-06-27 11:42] LABS: COVID-19 Test Negative (Negative); IDNOW Serial# BCCEAD1C
[2023-06-27 11:43] LABS: IDNOW Serial# 9DB6401D; Influenza A Negative (Negative); Influenza B2 Negative (Negative)
== END 2023-06-27 12:28 | disposition home or self-care (01) ==
PROVIDERS: Emergency Provider Student in an Organized Health Care Education/Training Program
DX: B34.9 Viral infection, unspecified (principal); J02.9 Acute pharyngitis, unspecified; Z11.52 Encounter for screening for COVID-19; R50.9 Fever, unspecified
CPT/HCPCS: 87502; 87635; 87651; 99283; 99284

== ENCOUNTER 2023-09-18 10:11 | Outpatient (AMB) | payer OTHER, SELFPAY ==
--- NOTE | 2023-09-18 10:14 | MHC.OFFVIS ---
Intake Intake Visit Reasons: Idiopathic scoliosis [employer] Required: No Allergies No Known Allergies Allergy (Verified 05/21/22 05:03) [facility] Medical History (Updated 09/18/23 @ 11:28 by MONSE Zhou) Scoliosis Assessment & Plan Assessment & Plan (1) Scoliosis: Code(s): M41.9 - Scoliosis, unspecified Qualifiers: Scoliosis type: idiopathic Qualified Code(s): M41.25 - Other idiopathic scoliosis, thoracolumbar region Plan Dear Ike, Thank you for referring Mary to our office today. She is a pleasant 22 y/o F who comes in today with a chief complaint of low back and pelvis pain which she reports started when she was 20 years old. Of note she has confirmed idiopathic scoliosis diagnosed at [facility]. She was receiving care from them until she was 19 years old. She states that she had no inciting incident but feels as though she had slowly worsening pain in her low back and associated pain in her pelvis for the last couple of years. She reports that she feels she also walks uneven due to a discrepancy in length between her legs. She has used a shoe lift in the past but does not use it currently. When describing her pelvic pain she places her hands over her bilateral inguinal creases. She states that in order to relieve this pain she needs to ?crack? her pelvis, which she is able to audibly replicate in office. She states that sitting cross-legged increases her pain, and that standing helps to relieve her pain. She is currently taking prescribed muscle relaxers which helps to alleviate her pain. She also reports that she recently has been to a chiropractor (within the last 2 weeks), and has been engaging with physical therapy (intermittently over the last 2 years). She states that she stretches/exercises daily in attempt to alleviate her low back pain and pelvic pain. PMH: Idiopathic scoliosis, Asthma, depression, migraines, eczema, leg length discrepancy (uses lift for left shoe). Social hx: Patient does not smoke cigarettes, uses cannabis recreationally. Medications: Albuterol. Allergies: NKDA Physical exam: The patient has 5/5 strength in her upper and lower extremities. She has no sensational deficits. Her reflexes are 2+ intact. She is able to ambulate well and rises from seated position without difficulty. She does report increased pain when in a seated position with her legs crossed. Her lumbar spine is notably curved toward the left on flexion. No pain to direct palpation of spine. (+) L sided denae's; likely a result confounded by malalignment of the pelvis. Imaging review: MRI of the lumbar spine reviewed at [facility] shows mild dextroscoliosis of the thoracic spine (15 degrees compared to previous MRI of 18), and moderate levoscoliosis of the lumbar spine (24 degrees compared to previous 27). The right iliac crest appears to sit higher than the left. No other osseous abnormalities, no significant nerve impingement Impression: Mary is a pleasant 22-year-old female who comes in today with a chief complaint of low back and pelvis pain which she reports started when she was 20 years old. She reports that her back pain has been increasing over the last 2 years and is now associated with pelvic pain as well. She is attempted to utilize [id number] remedies such as ice, heat, Tylenol, ibuprofen, pain patches, with only minimal relief of symptoms. According to her measured Moctezuma angle her scoliotic curve has actually improved in the last couple of years. Unfortunately her low back pain and pelvic symptoms continue to progress. We discussed the possibility of scoliotic correction surgery, and I described what that would entail. Unfortunately this would be a operation that is too extensive for us to complete at [facility]. After discussing the case with Dr. Villanueva he advised that I refer her to Dr. Cobian at [facility] for evaluation and possible correction of her scoliosis. Thank you for allowing us to care for your patient. The total time spent with this visit with this patient was 45 minutes reviewing history, physical exam, MRI imaging review, and implementation of treatment plan or further diagnostic testing Loc Villanueva MD,PhD [facility] Orders: Referrals Neurosurgery Referral M41.9 - Scoliosis, unspecified Coding Level of Care Code New Pt Level 4 (14196) Diagnoses Other idiopathic scoliosis, thoracolumbar region M41.25 Scoliosis type: idiopathic
== END 2023-09-18 10:52 | disposition home or self-care (01) ==
PROVIDERS: Referring Provider Physician Assistant; Visit Provider Physician Assistant
DX: M41.25 Other idiopathic scoliosis, thoracolumbar region (principal)
CPT/HCPCS: 99204

== ENCOUNTER → 2023-09-18 10:11 | Outpatient (BNVA) | payer OTHER, SELFPAY | PROVIDERS: Visit Provider Physician Assistant | DX: M41.25 Other idiopathic scoliosis, thoracolumbar region (principal) | CPT/HCPCS: 99202 ==

== ENCOUNTER 2024-12-19 17:00 | Emergency (ER) | payer OTHER, SELFPAY ==
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
[2024-12-19 17:05] VITALS: BP 104/69; PULSE 73; RESP 16; TEMP 36.7; O2SAT 99; BMI 18.4
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
--- OUTSIDE RECORDS SUMMARY | 2024-12-19 18:49 | XMS_ITS | Clinical Summary ---
Author Organization [facility] Address [address] [place] [id number] Phone Care Team Providers Care Manager In Training Name Role Phone Unavailable Primary Care Provider Unavailabl e Immunizations Immunization Administration Dates Next Due DTaP 5 06/04/2003,05/21/2002,03/24/2002 ,01/22/2002 Hep B, ped/adol 08/20/2002,2001,2001 Hib (PRP-T) 03/16/2003,05/21/2002,03/24/2002 ,01/22/2002 IPV 08/20/2002,03/24/2002,01/22/2002 Influenza, injectable, trivalent 06/04/2003 MMR 11/19/2002 Pneumococcal Conjugate 03/16/2003,05/21/2002,01/2002,01/22/2002 Varicella 11/19/2002 Social History Tobacco Use Types Packs/Day Years Used Date Smoking Tobacco: Never Assessed Comments Unknown Sex and Gender Information Value Date Recorded Sex Assigned at Not on file Legal Sex Female 4:09 PM EDT Gender Identity Not on file Sexual Orientation Not on file Plan of Treatment Health Maintenance Due Date Last Done Comments IPV Vaccines (4 of 4 - 4-dose series) 2005 08/20/2002, 03/24/2002, 01/22/2002 Varicella Vaccines (2 of 2 - 2-dose childhood series) 2005 11/19/2002 DTaP,Tdap,and Td Vaccines (5 - Tdap) 2012 06/04/2003, 05/21/2002, 03/24/2002, Additional history exists HPV Vaccines (1 - 3-dose series) 2016 Men B Vaccine (1 of 2 - Standard) 2017 Influenza Vaccines (#1) 2024 06/04/2003 COVID-19 Vaccine (2023- season) 2024 Hepatitis B Vaccines Completed 08/20/2002, 2001, 2001 MMR Vaccines Completed 11/19/2002 HIB Vaccines Completed 03/16/2003, 10/2001, 03/24/2002, Additional history exists Pneumococcal Vaccine Completed 03/16/2003, 05/21/2002, 03/24/2002, Additional history exists Hepatitis A Vaccines Aged Out No long er eligible based on patient's age to complete this topic Meningococcal Vaccine Aged Out No olinda vesta eligible based on patient's age to complete this topic
--- OUTSIDE RECORDS SUMMARY | 2024-12-19 18:49 | XMS_ITS | Encounter Summary ---
Author Organization [facility] Address [address] [place] [id number] Phone Care Team Providers Care Court Interpreter Name Role Phone Allie Hathaway NP Primary Care Provider [phone] Encounter Details Date Type Department Care Team (Late st Contact Info) Description 04/04/2017 Conversion Encounter [facility] - [address] [address] Social History Tobacco Use Types Packs/Day Years Used Date Smoking Tobacco: Never Assessed Comments Unknown Sex and Gender Information Value Date Recorded Sex Assigned at Not on file Legal Sex Female 4:09 PM EDT Gender Identity Not on file Sexual Orientation Not on file documented as of this encounter Plan of Treatment Not on file documented as of this encounter Visit Diagnoses Not on filedocumented in this encounter Care Teams Court Interpreter Relationship Specialty Start Date End Date Allie Hathaway NP PCP - General 03/29/17 09/27/22 documented as of this encounter
--- OUTSIDE RECORDS SUMMARY | 2024-12-19 18:49 | XMS_ITS | Referral Summary ---
Author Organization [facility] Address [address] [place] [address] Care Team Providers Care Designer Architect Name Role Phone Patient, Has No Pcp Or Ref Primary Care Provider Unavailable Allergies No known active allergies Medications cyclobenzaprine (FLEXERIL) 5 mg tablet Take 1 tablet by mouth once a day. 08/05/2023 Active Active Problems No known active problems Social History Tobacco Use Types Packs/Day Years Used Date Smoking Tobacco: Never Assessed Comments Unknown Sex and Gender Information Value Date Recorded Sex Assigned at Not on file Legal Sex Female 9:55 AM EST Gender Identity Not on file Sexual Orientation Not on file Plan of Treatment Not on file Care Teams Designer Architect Relationship Specialty Start Date End Date Patient, Has No Pcp Or Ref DO NOT EDIT THIS RECORD VIA PROVIDER ON THE FLY PCP - General Follow Up Manager 09/25/23
[2024-12-19 19:13] VITALS: BP 92/57; PULSE 72; O2SAT 98
--- NOTE | 2024-12-19 19:46 | PC.NURSE ---
per provider wait to give meds till urine preg test is back.
[2024-12-19 19:57] LABS: UPreg QC Valid YES; Urine Pregnancy NEGATIVE (NEGATIVE)
[2024-12-19] MEDS: 0.9 % Sodium Chloride 1,000 ML 999 ML IV (20:10)
--- NOTE | 2024-12-19 20:14 | PC.NURSE ---
pt taken to xray. not in the room at this time.
[2024-12-19] MEDS: Metoclopramide HCl 10 MG/2 ML VIAL IVPUSH (20:31)
[2024-12-19] MEDS: Ketorolac Tromethamine 15 MG/ML VIAL IVPUSH (20:33)
[2024-12-19] MEDS: diphenhydrAMINE HCL 50 MG/ML VIAL 12.5 MG IVPUSH (20:34)
[2024-12-19 20:40] VITALS: BP 108/81; PULSE 65; RESP 16; TEMP 36.6; O2SAT 100
[2024-12-19 21:16] VITALS: BP 108/81; PULSE 65; RESP 16; TEMP 36.6; O2SAT 100
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
[2024-12-19 21:18] VITALS: BP 108/81; PULSE 65; RESP 16; TEMP 36.6
== END 2024-12-19 21:16 | disposition home or self-care (01) ==
PROVIDERS: Physician Assistant Medical; Emergency Provider Emergency Medicine; PCP Internal Medicine
DX: S06.0X0A Concussion without loss of consciousness, initial encounter (principal); V43.52XA Car driver injured in collision with other type car in traffic accident, initial encounter; S39.012A Strain of muscle, fascia and tendon of lower back, initial encounter; S16.1XXA Strain of muscle, fascia and tendon at neck level, initial encounter; G43.909 Migraine, unspecified, not intractable, without status migrainosus; Y93.89 Activity, other specified; Y92.414 Local residential or business street as the place of occurrence of the external cause; Y99.9 Unspecified external cause status
CPT/HCPCS: 70450; 72100; 72125; 72220; 81025; 96361; 96374; 96375; 99284; 99285; J1200; J1885; J2765

== ENCOUNTER → 2024-12-19 17:10 | Outpatient (BNV) | payer OTHER, SELFPAY | PROVIDERS: Emergency Provider Emergency Medicine; PCP Internal Medicine; Visit Provider Radiology Diagnostic Radiology | DX: M54.2 Cervicalgia (principal); R51.9 Headache, unspecified; V89.2XXA Person injured in unspecified motor-vehicle accident, traffic, initial encounter; M54.50 Low back pain, unspecified | CPT/HCPCS: 70450; 72100; 72125; 72220 ==